=== PATIENT | female | born 1940 | race Two or more races ===

== ENCOUNTER 2019-02-03 00:56 | Inpatient (IN) | payer OTHER ==
[~2019-02-03] VITALS: Ht 152.4 cm; Wt 5.0 kg
--- NOTE | 2019-02-03 01:17 | NUR ---
SE RECIBE PTE ALERTA Y ORIENTADA POR ESTEE. FAMILIAR REFIERE QUE LA PTYE PRESENTA DIFICULTAD PARA HABLAR Y DEBILIDAD EN LADO VIC DEL CUERPO DESDE LAS 7:00PM. PTE INDICA TEODORA TENIDO MAYCO DOLOR DE RAE EL YASIR DE LAKESHA.
[2019-02-03] MEDS ORDERED: METFORMIN HCL500 MG (01:27)
[2019-02-03] MEDS ORDERED: LISINOPRIL5 MG (01:27)
[2019-02-03] MEDS ORDERED: PEPCID40 MG (01:28)
[2019-02-03] MEDS ORDERED: UNITHROID50 MCG (01:29)
--- NOTE | 2019-02-03 01:58 | NUR ---
SEORIENTA PTE SOBRE TRATAMIENTO. SE GHAZAL MUESTRAS DE R[place] Y SE CANALIZA PERIFERALMENTE POR T[place]. SE NOTIFICA A PERSONAL DE CT PARA ESTUDIO PENDIENTE. PTE PEDNIENTE A RE-EVLAUCION MEDICA.
--- NOTE | 2019-02-03 07:08 | NUR ---
SE RECIBE DE TURNO ANTERIOR FEMINA DE 78 ANOS,DESCANSANDO EN CAMA NIVEL MAS BAJO,BARANDAS ELEVADAS,FRENOS,BANEGAS DE IDENTIFICACION COLOCADOS POR SEGURIDAD.PACIENTE EN COMPANIA DE FAMILIAR. SE OBSERVA CON BUEN PATRON RESPIRATORIO. AREA DE VENOPUNCION LIMPIA,SECA, EMANUEL DE S/S EDEMA Y/O ERITEMA. RECIBIENDO 0.9%NSS 1,000 ML @ [facility]. PENDIENTE CONSULTA CON .
--- NOTE | 2019-02-03 07:51 | NUR ---
CONSULTA PACIENTE CON .
== END 2019-02-07 19:30 | disposition home or self-care (01) | DRG 57 ==
LOC: ER 00:56 → MEDJ 13:27
PROVIDERS: ADMIT Internal Medicine
PROC: BW28ZZZ Computerized Tomography (CT Scan) of Head (ICD-10-PCS; principal; 2019-02-03)
PROC: B246ZZZ Ultrasonography of Right and Left Heart (ICD-10-PCS; 2019-02-04)
PROC: B345ZZZ Ultrasonography of Bilateral Common Carotid Arteries (ICD-10-PCS; 2019-02-04)
PROC: B348ZZZ Ultrasonography of Bilateral Internal Carotid Arteries (ICD-10-PCS; 2019-02-04)
PROC: 4A12X4Z Monitoring of Cardiac Electrical Activity, External Approach (ICD-10-PCS; 2019-02-04)
PROC: B030ZZZ Magnetic Resonance Imaging (MRI) of Brain (ICD-10-PCS; 2019-02-04)
DX: I69.354 Hemiplegia and hemiparesis following cerebral infarction affecting left non-dominant side (principal); I69.398 Other sequelae of cerebral infarction; I10 Essential (primary) hypertension; E11.9 Type 2 diabetes mellitus without complications; F06.30 Mood disorder due to known physiological condition, unspecified
CPT/HCPCS: 70551